=== PATIENT | male | born 1950 | race Caucasian/White ===

== ENCOUNTER 2025-07-08 08:06 | Observation (INO) ==
[2025-07-08] MEDS: ASPIRIN CHEW 324 MG PO STA (08:22)
--- NOTE | 2025-07-08 08:24 | Emergency Department Note ---
Impression & Plan Atypical chest pain, Cardiomegaly, Back pain ED Provider Note NAME: DANGELO REN AGE: 74 SEX: M : 1950 ARRIVES VIA: Walk-In INFORMANT: Patient, ED PROVIDER(S): Korey Dueñas DO CHIEF COMPLAINT: chest/back pain HPI: This is a 74-year-old male with the PMHx of HLD, OA and BPH presenting to [facility] for further evaluation of chest and back pain. Patient is accompanied by his who provide additional history. Patient states this morning while getting out of the shower he developed chest and back pain. This is sharp stabbing. States it started in his back. Reports that this was intrascapular. States that now radiating into the central aspect of his chest as well as left side. This is associated with mild nausea. Patient states that he has a family history of cardiovascular disease but does not appear to be premature. Patient notes that he has diet-controlled hyperlipidemia. Patient states that he is active and otherwise healthy. Patient frequently exercises and hunts. States when he is exerting himself, that he never has any issues with chest pain or shortness of breath. They deny fever or chills. No cough or congestion. Denies chest palpitations. No shortness of breath. They deny abdominal pain and vomiting. No urinary complaints. No recent changes in bowel movements. No recent travel or surgery. Patient denies recent changes in medications or OTC supplements. Patient offers no other complaints, today. ADDITIONAL HISTORY OBTAINED: Per HPI Chronic Medical/Social Conditions Affecting Care: Per HPI PAST MEDICAL HISTORY: See Below PAST SURGICAL HISTORY: See Below FAMILY HISTORY: See Below SOCIAL HISTORY: See Below HOME MEDICATIONS: See Below ALLERGIES: See Below VITALS: See Below PHYSICAL EXAMINATION: GENERAL: Sitting up in bed, alert, well appearing, well nourished, no distress, non-toxic EYE EXAM: normal conjunctiva. OROPHARYNX: no exudate, no erythema, lips, buccal mucosa, and tongue normal and mucous membranes are moist NECK: supple, no nuchal rigidity, no adenopathy, non-tender LUNGS: Clear to auscultation. Normal chest wall mechanics HEART: no murmurs, bradycardic rate, regular rhythm, 2+ radial pulses ABDOMEN: abdomen soft, non-tender, no masses, no rebound or guarding. BACK: Back is symmetrical on inspection and there is no deformity, no midline tenderness, no CVA tenderness. SKIN: no rashes and no bruising UPPER EXTREMITIES: upper extremities are grossly normal. LOWER EXTREMITIES: No pitting edema. NEURO EXAM: Normal sensorium, GCS 15, normal speech, no gross weakness of arms, no gross weakness of legs. Mayank Fontana is a 89-year-old male. He had originally starte MEDICAL DECISION MAKING: Differential diagnoses includes but not limited to ACS, stable vs unstable angina, dysrhythmia, viral URI, pneumonia, pericarditis, pneumothorax, costochondritis, MSK strain, PE, hypertensive emergency, psychological causes, esophageal reflux, gastritis In summary, this is a 74 year old male who presented with chest / back pain. Differential as above. Nursing notes and pertinent past medical records reviewed. Vital signs reviewed and the patient is hypertensive but otherwise afebrile and HDS. History and presentation revealed chest and back pain in otherwise healthy and active individual. Risk factors for ACS include age and HLD. Story is concerning for aortic dissection. Physical examination revealed as above. As a result of my initial evaluation, Presentation is concerning for a right dissection will proceed with CT. IV access was established and the patient was placed on CCRM. Therapeutics ordered include ASA load, IV Fentanyl and Tylenol. Diagnostics interpreted by me include EKG and cardiac monitoring as listed below: -Cardiac Monitoring: An order was placed for continuous cardiac monitoring. The monitor shows a rate of 40-60s with regular rhythm. -ECG: Sinus bradycardia at a rate of [address] segment changes to suggest STEMI. Intervals are otherwise within normal limits. -Repeat ECG: Sinus bradycardia at a rate of [address] segment changes to suggest STEMI. Intervals are otherwise within normal limits. Patient completed laboratory studies and imaging. CXR independently interpreted by me reveals no evidence of focal consolidation to suggest pna. No large pneumothorax or pleural effusion. No obvious displaced rib fracture. Results independently interpreted by me are no leukocytosis or anemia. The patient was managed with IV Tylenol and fentanyl upon arrival very like this provided.. Patient was given sublingual nitroglycerin with some relief. Patient had a normal-appearing CTA of the chest. No evidence of pulmonary embolism or aortic dissection. There is evidence of cardiomegaly. Patient is relatively atypical symptoms. He does have risk factors for ACS. Family is very anxious regarding the patient's chest pain today. His back and chest pain has failed to improve. IV Midazolam ordered for muscle relaxant. The patient will need further workup for chest pain r/o as an inpatient. Ultimately, the decision was made to admit the patient for atypical chest pain. I discussed the case with the hospitalist service via telephone/TigerText and they are agreeable to admit the patient to their services. Based on the above, including the patient's age, coexisting illnesses, labs, imaging, and exam findings the decision to treat as an inpatient. I discussed the patient with the hospitalist team who recommended admission to their services. They received the medications, treatments, interventions indicated above and their condition remained stable. I discussed my findings with the patient and their family and they understand and agree with the treatment plan. All patient / family questions were answered to their satisfaction. Consults/Care Managements Discussions: Per [facility] ER treatment provided: See above Procedures: None Critical Care: None The chart was completed utilizing [employer] Speech voice recognition software. Grammatical errors, random word insertions, pronoun errors, and incomplete sentences are an occasional consequence of this system due to software limitations, ambient noise, and hardware issues. Any formal questions or concerns about the content, text, or information contained within the body of this dictation should be directly addressed to the physician for clarification. 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) History of arthroscopy of right shoulder S/P rotator cuff repair History of colonoscopy History of lumbar surgery S/P arthroscopy of shoulder H/O cystoscopy Hx of LASIK Nausea and vomiting after administration of anesthetic agent History of surgery Hx of transurethral resection of prostate History of tooth extraction History of tonsillectomy Family History Mother Alzheimer disease Myocardial infarction History of colonic polyps Colonic polyp Grandmother (Maternal) Diabetes Aunt Diabetes Father Bladder cancer Sister History of colonic polyps Uncle Colorectal cancer Uncle Myocardial infarction Other No family history of adverse response to anesthesia Denies family history of Ovarian cancer Prostate cancer Breast cancer Social History Smoking Status: Unknown if ever smoked Second Hand Exposure: No; Do You Dip or Chew Tobacco: No; Hx Alcohol Use: No Hx Substance Use: No Preferred Language: Sierra Leonean Communication Ability: Effective Visual Impairment: Partially Limited Hearing Ability: Normal Sales Director Required: No Beliefs That Will Affect Care: None marital status: Current Living Situation: Spouse current occupational status: employed 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 How many Children do You have: 3 Feels Safe at Home: Yes Childhood Exposure to Second-Hand Smoke: Yes (father did ) Diet: regular Diet Comment: regular caffeine: Yes during the past year weight has: remained stable Dental Care, Regularly: Yes Physical Activity Frequency: Daily Seatbelt Use: always Sunscreen Use: Yes Assistive Devices: Glasses Allergies Allergies Allergy/AdvReac Type Severity Reaction Status Date / Time No Known Allergies Allergy Verified 11/25/24 08:15 Home Meds Home Medications Medication Instructions Recorded Confirmed multivitamin 1 tab PO QAM 06/19/18 07/08/25 omega 7-obn-kll-fish oil 1,000 mg 1 cap PO BID 06/19/18 07/08/25 (120 mg-180 mg) capsule (Fish Oil) fiber 1 tab PO QPM 04/12/21 07/08/25 garlic 1,000 mg PO QPM 04/12/21 07/08/25 magnesium 1 tab PO QPM 04/12/21 07/08/25 Nexgen Testosterone Booster 1 dose PO QAM 07/12/23 07/08/25 apple cider vinegar 300 mg tablet 450 mg PO QPM 07/12/23 07/08/25 melatonin 10 mg tablet 20 mg PO HS 07/12/23 07/08/25 brimonidine 0.2 % eye drops 1 drp ophthalmic (eye) BID 01/30/24 12/23/25 latanoprost 0.005 % eye drops 1 drp ophthalmic (eye) HS 08/15/23 07/08/25 coenzyme Q10 100 mg capsule 200 mg PO QAM 10/04/23 07/08/25 (CoQ-10) tadalafil 10 mg tablet (Cialis) 10 mg PO UD PRN sexual activity 10/04/23 07/08/25 Conjugated Linoleic Acid 1 tab PO QPM 03/25/24 07/08/25 aspirin 81 mg tablet,delayed 81 mg PO HS 03/25/24 07/08/25 release ferrous sulfate 325 mg (65 mg 65 mg PO QPM 03/25/24 07/08/25 iron) tablet (Iron (ferrous sulfate)) krill 1,000 mg-omega-3 170 mg-dha 1 cap PO QAM 03/25/24 07/08/25 50 mg-epa 80 [id number] capsule (krill oil) niacin 400 mg capsule,extended 400 mg PO QAM 03/25/24 07/08/25 release turmeric root extract 500 mg tablet 500 mg PO QAM 03/25/24 07/08/25 vitamin C 500 mg-quercetin 250 1 cap PO QPM 03/25/24 07/08/25 mg-bioflavonoids, citrus 33 mg capsule (Quercetin Complex) Previous Rx's Medication Instructions Recorded amoxicillin 500 mg capsule 2,000 mg (4 x 500 mg) PO ONCE #4 02/11/25 caps gabapentin 300 mg capsule 300 mg PO BID #180 caps 02/24/25 sildenafil 50 mg tablet 50 mg PO DAILY PRN sexual activity 05/28/25 #60 tabs Results & Data (ED) Vital Signs Vital Signs - 24 hr 07/08/25 08:07 07/08/25 08:07 07/08/25 08:30 Temperature 36.6 C Temperature Source Temporal Artery Scan Pulse Rate 55 L 55 L 55 L Pulse Rate [Left Finger] Pulse Rhythm Regular Respiratory Rate 20 14 Respiratory Effort / Characteristics Non-Labored Respiratory Depth Normal Respiratory Pattern Blood Pressure 182/44 H Blood Pressure [Right Arm] Blood Pressure Mean 90 Blood Pressure Mean [Right Arm] Blood Pressure Position [Right Arm] Pulse Oximetry 98 95 Oxygen Delivery Method Room Air Room Air Sepsis Recent Fever Within 48 Hours No Sepsis New/Unexplained Change in Mental Status No Sepsis Action Taken by Nursing No Action Required 07/08/25 08:54 07/08/25 09:30 07/08/25 12:07 Temperature 36.6 C Temperature Source Oral Pulse Rate Pulse Rate [Left Finger] 47 L 50 L Pulse Rhythm Respiratory Rate 15 18 18 Respiratory Effort / Characteristics Non-Labored Spontaneous Non-Labored Spontaneous Non-Labored Spontaneous Respiratory Depth Normal Normal Normal Respiratory Pattern Regular Blood Pressure Blood Pressure [Right Arm] 168/81 H 145/80 H 166/80 H Blood Pressure Mean Blood Pressure Mean [Right Arm] 110 101 108 Blood Pressure Position [Right Arm] Lying Pulse Oximetry 95 99 95 Oxygen Delivery Method Room Air Room Air Sepsis Recent Fever Within 48 Hours Sepsis New/Unexplained Change in Mental Status Sepsis Action Taken by Nursing 07/08/25 12:29 Temperature Temperature Source Pulse Rate 51 L Pulse Rate [Left Finger] Pulse Rhythm Respiratory Rate Respiratory Effort / Characteristics Respiratory Depth Respiratory Pattern Blood Pressure Blood Pressure [Right Arm] Blood Pressure Mean Blood Pressure Mean [Right Arm] Blood Pressure Position [Right Arm] Pulse Oximetry Oxygen Delivery Method Sepsis Recent Fever Within 48 Hours Sepsis New/Unexplained Change in Mental Status Sepsis Action Taken by Nursing Laboratory Data 07/08/25 08:19 07/08/25 08:19 Lab Results 07/08/25 07/08/25 07/08/25 Range/Units 08:19 08:28 10:36 WBC 7.97 (4.8-10.8) K/ul RBC 4.72 (4.70-6.10) M/uL Hgb 14.6 (14.0-18.0) g/dL POC Hgb 12.6 L (14.0-18.0) g/dl Hct 40.9 L (42.0-52.0) % POC Hct 37 L (42-52) % MCV 86.7 (80.0-100.0) fL MCH 30.9 (25.0-34.0) pg MCHC 35.7 (32.0-36.0) g/dL RDW Std Deviation 40.5 (36.4-46.3) fL RDW Coeff of Damon 12.8 (11.5-14.5) % Plt Count 260 (130-400) K/uL MPV 9.6 (9.4-12.4) fL Immature Gran % (Auto) 0.3 % Neut % (Auto) 73.3 % Lymph % (Auto) 17.9 % Forrest % (Auto) 6.9 % Eos % (Auto) 1.3 % Baso % (Auto) 0.3 % Neut # (Auto) 5.85 (1.40-6.50) K/uL Lymph # (Auto) 1.43 (1.20-3.40) K/uL Forrest # (Auto) 0.55 (0.11-0.59) K/uL Eos # (Auto) 0.10 (0.00-0.50) K/uL Baso # (Auto) 0.02 (0.00-0.20) K/uL Immature Gran # (Auto) 0.02 (0.01-0.20) K/uL PT 10.8 (9.0-12.0) Seconds INR 1.0 (0.9-1.1) APTT 25 (21-31) Seconds PTT Ratio 0.9 POC Sodium 140 (135-144) mmol/L Sodium 138 (136-145) mmol/L POC Potassium 4.5 (3.3-5.0) mmol/L Potassium 4.1 (3.5-5.1) mmol/L POC Chloride 103 (101-112) mmol/L Chloride 103 (98-107) mmol/L Carbon Dioxide 28 (21-32) mmol/L POC Total CO2 23 L (24-31) mmol/L Anion Gap 7 (3-11) POC Anion Gap 20.0 (16-25) mmol/L POC BUN 20 H (7-18) mg/dl BUN 19 (6-23) mg/dl Creatinine 0.89 (0.6-1.4) mg/dl POC Creatinine 0.9 (0.6-1.3) mg/dl Est Cr Clr Drug Dosing 71.4 ml/min eGFR 91.05 BUN/Creatinine Ratio 21.3 H (10-20) Glucose 175 H (70-99(Fasting)) mg/dl POC Glucose (other) 176 H (70-99) mg/dl Calcium 9.6 (8.6-10.3) mg/dl POC Ioniz Calcium Wilmer 1.18 (1.12-1.32) mmol/l Total Bilirubin 0.5 (0.2-1.0) mg/dl AST 20 (13-39) U/L ALT 22 (7-52) U/L Alkaline Phosphatase 65 (34-104) U/L Troponin I High Sens 5.2 4.8 (0-20) pg/ml Total Protein 8.6 H (6.0-8.3) gm/dl Albumin 4.9 (3.4-5.0) gm/dl Globulin 3.7 (2.5-4.0) gm/dl Albumin/Globulin Ratio 1.3 (0.9-2) Lipase 21 (11-82) U/L Administered Medications Nitroglycerin (Nitroglycerin Sl 0.4 Mg/Tab Tab) 0.4 mg SL Q5M PRN PRN Reason: Chest Pain Stop: 08/07/25 09:40 Last Admin: 07/08/25 10:32 Dose: 0.4 mg Documented By: rolf Admin: 07/08/25 09:57 Dose: 0.4 mg Documented By: MR Discontinued Medications Aspirin (Aspirin Chew 324 Mg) 324 mg PO NOW STA Stop: 07/08/25 08:16 Last Admin: 07/08/25 08:22 Dose: 324 mg Documented By: rolf Diazepam (Diazepam Inj 5 Mg/Ml 2 Ml Carp) 5 mg IV NOW STA Stop: 07/08/25 11:15 Last Admin: 07/08/25 12:12 Dose: 5 mg Documented By: SKYE Fentanyl Citrate (Fentanyl Citrate Pf 100 Mcg/2 Ml Vial) 50 mcg IV NOW ONE Stop: 07/08/25 08:16 Last Admin: 07/08/25 08:23 Dose: 50 mcg Documented By: rolf Acetaminophen (Ofirmev) 1,000 mg in 100 mls @ 400 mls/hr IV NOW STA Stop: 07/08/25 08:29 Last Infusion: 07/08/25 09:54 Dose: Infused Documented By: rolf Admin: 07/08/25 08:44 Dose: 400 mls/hr Documented By: rolf Ioversol (Optiray 320 125ml) 120 ml IV ONCE ONE Stop: 07/08/25 08:36 Last Admin: 07/08/25 08:35 Dose: 120 ml Documented By: ASAEL Imaging Data Radiologist's Impression: Chest CTA 07/08/25 08:15 CT ANGIOGRAM OF THE CHEST COMBO CLINICAL HISTORY: Chest pain. Thoracic back pain. COMPARISON STUDY: Chest x-ray dated 07/08/2025. TECHNIQUE: Before and following the IV administration of 120 cc of Optiray 320, CT angiogram of the chest was performed from the thoracic inlet to the upper abdomen utilizing the dissection protocol. Images are reviewed in the axial, sagittal, and coronal planes. 3-D MIPS images are created and assessed. IV contrast was administered without complication. A dose lowering technique was utilized adhering to the principles of ALARA. CT DOSE: 859.44 mGy.cm FINDINGS: Thyroid: Imaged portions of the thyroid gland are normal in size and attenuation. Thoracic aorta: No intramural hematoma is seen on the unenhanced series. There is mild atherosclerotic calcification of the thoracic aorta, which is normal in caliber and demonstrates standard 3-vessel arch anatomy. No dissection is seen. The arch vessels are widely patent. Pulmonary vasculature: The pulmonary trunk is normal in caliber. There are no filling defects identified in the main, lobar, or segmental pulmonary arteries to suggest pulmonary embolus. Heart: The heart is mildly enlarged and without pericardial effusion. There is mild coronary artery atherosclerosis. Lungs and pleural spaces: There is an airspace consolidation or pleural effusion. The trachea and central airways are clear. Dependent atelectasis is seen at both lung bases. A 4 mm low suspicion focus of pleural-based nodularity is seen in the right middle lobe along minor fissure on image #121. Mediastinum: There is no mediastinal lymphadenopathy. Gisselle: There are calcified left hilar nodes. No lymphadenopathy is seen. Axillae: There is no axillary lymphadenopathy. Upper abdomen: There are calcified splenic and hepatic granulomas. A tiny hiatal hernia is observed. Skeletal structures: No lytic or blastic bony lesions are seen. Moderate arthritic change is seen in the shoulders with evidence of prior surgery on the right. IMPRESSION: 1. Unremarkable CT angiogram of the thoracic aorta. 2. There is no evidence of pulmonary embolus in the main, lobar, or segmental pulmonary arteries. 3. There is no airspace consolidation or pleural effusion. 4. Cardiomegaly. 5. Additional findings as above. ACT 112: Negative or not required by law. Electronically signed by: Da Forbes M.D. 07/08/2025 8:56 AM Chest X-Ray 07/08/25 08:15 SINGLE VIEW CHEST CLINICAL HISTORY: Chest pain FINDINGS: An AP, portable, upright chest radiograph is compared to study dated 11/28/2024. The heart is mildly enlarged. The pulmonary vasculature is noncongested. There is mild bibasilar atelectasis. The lungs and pleural spaces are otherwise clear. No pneumothorax is seen. The skeletal structures are osteopenic. The bony thorax is grossly intact. IMPRESSION: Mild cardiomegaly with no acute cardiopulmonary abnormality identified. ACT 112: Negative or not required by law. Electronically signed by: Da Forbes M.D. 07/08/2025 8:36 AM Discharge Plan Visit Data Chief Complaint: Chest Pain Stated Complaint: BACK PAIN, CHEST PAIN ED Provider: Korye Dueñas Discharge Problem: Atypical chest pain, Cardiomegaly, Back pain Patient Disposition: Admitted As Inpatient Condition: Fair Forms Stand Alone Forms: [facility] Prescriptions Prescriptions: No Action amoxicillin 500 mg capsule 2,000 mg PO ONCE Qty: 4 2RF Rx Instructions: Take 4 Capsules (2000 mg) by mouth ONE hour prior to dental procedure. gabapentin 300 mg capsule 300 mg PO BID Qty: 180 1RF Rx Instructions: 300 mg orally twice a day; sildenafil 50 mg tablet 50 mg PO DAILY PRN (Reason: sexual activity) Qty: 60 1RF Rx Instructions: administer 30 minutes to 4 hours before activity multivitamin Tablet 1 tab PO QAM Patient Comments: men over 50+ omega 2-ith-plm-fish oil [Fish Oil] 1,000 mg (120 mg-180 mg) Capsule 1 cap PO BID fiber Tablet 1 tab PO QPM magnesium Tablet 1 tab PO QPM garlic Capsule 1,000 mg PO QPM apple cider vinegar 300 mg Tablet 450 mg PO QPM melatonin 10 mg Tablet 20 mg PO HS Nexgen Testosterone Booster 1 dose PO QAM latanoprost 0.005 % drops 1 drp ophthalmic (eye) HS Rx Instructions: 1 drop both eyes brimonidine 0.2 % drops 1 drp ophthalmic (eye) BID Rx Instructions: 1 drop both eyes coenzyme Q10 [CoQ-10] 100 mg Capsule 200 mg PO QAM tadalafil [Cialis] 10 mg tablet 10 mg PO UD PRN (Reason: sexual activity) Rx Instructions: administer approximately 30min before sexual activity; do not use more than 1 dose per 24hrs niacin 400 mg Capsule, Extended Release 400 mg PO QAM ferrous sulfate [Iron (ferrous sulfate)] 325 mg (65 mg iron) Tablet 65 mg PO QPM krill oil 1,[id number] mg Capsule 1 cap PO QAM turmeric root extract 500 mg Tablet 500 mg PO QAM Quercetin Complex 500-250-33 mg Capsule 1 cap PO QPM Conjugated Linoleic Acid 1 tab PO QPM aspirin 81 mg tablet,delayed release (DR/EC) 81 mg PO HS Referrals Referrals: Diana Mejia DO [Primary Care Provider] -
[2025-07-08 08:31] LABS: Hematocrit (blood only) 40.9 % (42.0-52.0); Hemoglobin 14.6 g/dL (14.0-18.0); Immature Granulocytes # (auto) 0.02 K/uL (0.01-0.20); Immature Granulocytes % (auto) 0.3 %; Mean Corpuscular Hemoglobin 30.9 pg (25.0-34.0); Mean Corpuscular Volume 86.7 fL (80.0-100.0); Platelet Count 260 K/uL (130-400); RDW Standard Deviation 40.5 fL (36.4-46.3); Red Blood Count 4.72 M/uL (4.70-6.10); White Blood Count 7.97 K/ul (4.8-10.8)
[2025-07-08] MEDS: OPTIRAY 320 125ml IV ONE (08:35)
--- NOTE | 2025-07-08 08:38 | XRay Report ---
SINGLE VIEW CHEST CLINICAL HISTORY: Chest pain FINDINGS: An AP, portable, upright chest radiograph is compared to study dated 11/28/2024. The heart i s mildly enlarged. The pulmonary vasculature is noncongested. There is mild bibasilar atelectasis. Th e lungs and pleural spaces are otherwise clear. No pneumothorax is seen. The skeletal structures are osteopenic. The bony thorax is grossly intact. IMPRESSION: Mild cardiomegaly with no acute cardiopulmonary abnormality identified. ACT 112: Negative or not required by law. Electronically signed by: Da Forbes M.D. 07/08/2025 8:36 AM
[2025-07-08] MEDS: ACETAMINOPHEN 1,000 MG/100 ML VIAL IV STA (08:44)
[2025-07-08 08:48] LABS: Alanine Aminotransferase 22.0 U/L (7-52); Albumin Globulin Ratio 1.3 (0.9-2); Albumin Level 4.9 gm/dl (3.4-5.0); Alkaline Phosphatase 65.0 U/L (34-104); Anion Gap 7.0 (3-11); Bilirubin,Total 0.5 mg/dl (0.2-1.0); Blood Urea Nitrogen 19.0 mg/dl (6-23); Calcium 9.6 mg/dl (8.6-10.3); Carbon Dioxide 28.0 mmol/L (21-32); Chloride 103.0 mmol/L (98-107); Creatinine Clr Calc Pharmacy 71.4 ml/min; Globulin 3.7 gm/dl (2.5-4.0); Glucose 175.0 mg/dl (70-99(Fasting)); Lipase 21.0 U/L (11-82); Potassium 4.1 mmol/L (3.5-5.1); Sodium 138.0 mmol/L (136-145); Total Protein 8.6 gm/dl (6.0-8.3)
--- NOTE | 2025-07-08 08:58 | CT Scan Report ---
CT ANGIOGRAM OF THE CHEST COMBO CLINICAL HISTORY: Chest pain. Thoracic back pain. COMPARISON STUDY: Chest x-ray dated 07/08/2025. TECHNIQUE: Before and following the IV administration of 120 cc of Optiray 320, CT angiogram of the c hest was performed from the thoracic inlet to the upper abdomen utilizing the dissection protocol. Im ages are reviewed in the axial, sagittal, and coronal planes. 3-D MIPS images are created and assesse d. IV contrast was administered without complication. A dose lowering technique was utilized adherin g to the principles of ALARA. CT DOSE: 859.44 mGy.cm FINDINGS: Thyroid: Imaged portions of the thyroid gland are normal in size and attenuation. Thoracic aorta: No intramural hematoma is seen on the unenhanced series. There is mild atheroscleroti c calcification of the thoracic aorta, which is normal in caliber and demonstrates standard 3-vessel arch anatomy. No dissection is seen. The arch vessels are widely patent. Pulmonary vasculature: The pulmonary trunk is normal in caliber. There are no filling defects identif ied in the main, lobar, or segmental pulmonary arteries to suggest pulmonary embolus. Heart: The heart is mildly enlarged and without pericardial effusion. There is mild coronary artery a therosclerosis. Lungs and pleural spaces: There is an airspace consolidation or pleural effusion. The trachea and darinel tral airways are clear. Dependent atelectasis is seen at both lung bases. A 4 mm low suspicion focus of pleural-based nodularity is seen in the right middle lobe along minor fissure on image #121. Mediastinum: There is no mediastinal lymphadenopathy. Gisselle: There are calcified left hilar nodes. No lymphadenopathy is seen. Axillae: There is no axillary lymphadenopathy. Upper abdomen: There are calcified splenic and hepatic granulomas. A tiny hiatal hernia is observed. Skeletal structures: No lytic or blastic bony lesions are seen. Moderate arthritic change is seen in the shoulders with evidence of prior surgery on the right. IMPRESSION: 1. Unremarkable CT angiogram of the thoracic aorta. 2. There is no evidence of pulmonary embolus in the main, lobar, or segmental pulmonary arteries. 3. There is no airspace consolidation or pleural effusion. 4. Cardiomegaly. 5. Additional findings as above. ACT 112: Negative or not required by law. Electronically signed by: Da Forbes M.D. 07/08/2025 8:56 AM
[2025-07-08 09:04] LABS: INR 1.0 (0.9-1.1); Partial Thromboplastin Time 25 Seconds (21-31); Prothrombin Time 10.8 Seconds (9.0-12.0)
[2025-07-08] MEDS: NITROGLYCERIN SL 0.4 MG/TAB TAB SL PRN (09:57)
[2025-07-08] MEDS ORDERED: KETOROLAC TROMETHAMINE 15 MG/ML VIAL IV PRN (14:38)
[2025-07-08] MEDS ORDERED: ACETAMINOPHEN 325 MG TAB PO PRN (14:38)
[2025-07-08] MEDS ORDERED: POLYETHYLENE (MIRALAX) 17 GM PACK PO PRN (14:38)
--- NOTE | 2025-07-08 14:45 | History & Physical Report ---
"Date of Service July 08, 2025 Assessment & Plan (1) Atypical chest pain: (2) Back pain: Plan This is a 74 year old gentleman with past medical history of BPH, HLD, OA who presented to the ED on 07/08 for chest pain. While in the ED, his EKG was without ischemic changes. His troponin was negative x 2. CXR and CTA were both negative. CBC & BMP were both stable. LFTs were WNL & Lipase also WNL. 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 EKG without ischemic changes, troponin negative x2. s/p Fentanyl, ASA, nitro x2 & Valium in ED. Patient reports improvement after Valium. Suspect possibly MSK given improvement after Valium ? Obtain Echo, monitor on tele, repeat EKG prn for recurrence of chest pain & repeat in AM If workup above comes back negative, patient may be discharged in the AM on 07/09. Check Lipids and A1c in AM #Neuropathy - Gabapentin DVT prophylaxis: SCD's Code: full Updated at bedside & case was discussed with Dr. Holland at time of admission. History of Present Illness Primary Care Provider: Diana Mejia, This is a 74 year old gentleman with past medical history of BPH, HLD, OA who presented to the ED on 07/08 for chest pain. Jorge was seen & examined this afternoon with his at bedside. He reports this morning he had an onset of back pain after getting out of the shower that radiated to his chest. He reports nothing helped it at home which is why he reported to the ED. He now reports after Valium that he feels his pain has resolved. When the pain was severe, he felt nauseous but did not vomit. States he has had back surgery in the past but it does not feel similar to previous back pain he has had. Denies any additional complaints including no SOB, LE edema, urinary/bowel changes, abdominal pain. While in the ED, his EKG was without ischemic changes. His troponin was negative x 2. CXR and CTA were both negative. CBC & BMP were both stable. LFTs were WNL & Lipase also WNL. Code discussion did take place and he does confirm that he is a full code. Allergies Allergy/AdvReac Type Severity Reaction Status Date / Time No Known Allergies Allergy Verified 11/25/24 08:15 Home Medications Medication Instructions Recorded Confirmed Type multivitamin 1 tab PO QAM 06/19/18 07/08/25 History omega 5-xcf-ejg-fish oil 1,000 mg 1 cap PO BID 06/19/18 07/08/25 History (120 mg-180 mg) capsule (Fish Oil) fiber 1 tab PO QPM 04/12/21 07/08/25 History garlic 1,000 mg PO QPM 04/12/21 07/08/25 History magnesium 1 tab PO QPM 04/12/21 07/08/25 History Nexgen Testosterone Booster 1 dose PO QAM 07/12/23 07/08/25 History apple cider vinegar 300 mg tablet 450 mg PO QPM 07/12/23 07/08/25 History melatonin 10 mg tablet 20 mg PO HS 07/12/23 07/08/25 History brimonidine 0.2 % eye drops 1 drp ophthalmic (eye) BID 08/15/23 07/08/25 History latanoprost 0.005 % eye drops 1 drp ophthalmic (eye) HS 08/15/23 07/08/25 History coenzyme Q10 100 mg capsule 200 mg PO QAM 10/04/23 07/08/25 History (CoQ-10) tadalafil 10 mg tablet (Cialis) 10 mg PO UD PRN sexual activity 10/04/23 07/08/25 History Conjugated Linoleic Acid 1 tab PO QPM 03/25/24 07/08/25 History aspirin 81 mg tablet,delayed 81 mg PO HS 03/25/24 07/08/25 History release ferrous sulfate 325 mg (65 mg 65 mg PO QPM 03/25/24 07/08/25 History iron) tablet (Iron (ferrous sulfate)) krill 1,000 mg-omega-3 170 mg-dha 1 cap PO QAM 03/25/24 07/08/25 History 50 mg-epa 80 tk-pksqwv-tggba capsule (krill oil) niacin 400 mg capsule,extended 400 mg PO QAM 03/25/24 07/08/25 History release turmeric root extract 500 mg tablet 500 mg PO QAM 03/25/24 07/08/25 History vitamin C 500 mg-quercetin 250 1 cap PO QPM 03/25/24 07/08/25 History mg-bioflavonoids, citrus 33 mg capsule (Quercetin Complex) amoxicillin 500 mg capsule 2,000 mg (4 x 500 mg) PO ONCE #4 02/11/25 07/08/25 Rx caps gabapentin 300 mg capsule 300 mg PO BID #180 caps 02/24/25 07/08/25 Rx sildenafil 50 mg tablet 50 mg PO DAILY PRN sexual activity 05/28/25 07/08/25 Rx #60 tabs 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) History of arthroscopy of right shoulder S/P rotator cuff repair History of colonoscopy History of lumbar surgery S/P arthroscopy of shoulder H/O cystoscopy Hx of LASIK Nausea and vomiting after administration of anesthetic agent History of surgery Hx of transurethral resection of prostate History of tooth extraction History of tonsillectomy Family History Mother Alzheimer disease Myocardial infarction History of colonic polyps Colonic polyp Grandmother (Maternal) Diabetes Aunt Diabetes Father Bladder cancer Sister History of colonic polyps Uncle Colorectal cancer Uncle Myocardial infarction Other No family history of adverse response to anesthesia Denies family history of Ovarian cancer Prostate cancer Breast cancer Social History Smoking Status: Unknown if ever smoked Second Hand Exposure: No; Do You Dip or Chew Tobacco: No; Hx Alcohol Use: No Hx Substance Use: No Preferred Language: Citizen Of [place] Communication Ability: Effective Visual Impairment: Partially Limited Hearing Ability: Normal Bracelet Former Required: No Beliefs That Will Affect Care: None marital status: Current Living Situation: Spouse current occupational status: employed 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 [employer] How many Children do You have: 3 Feels Safe at Home: Yes Childhood Exposure to Second-Hand Smoke: Yes (father did ) Diet: regular Diet Comment: regular caffeine: Yes during the past year weight has: remained stable Dental Care, Regularly: Yes Physical Activity Frequency: Daily Seatbelt Use: always Sunscreen Use: Yes Assistive Devices: Glasses Physical Exam Physical Exam: General: NAD, VS: BP 166/80; P73; R14; T36.6C Resp: normal respiratory effort, lungs clear to auscultation CV: RRR, no murmur, no tenderness to chest wall Abd: normal bowel sounds, non tender, no hepatosplenomegaly Extremities: Moves all extremities, no edema, no tenderness over spine or MSK area of thoracic spine area. Neuro: A&O x3, Skin: intact, no lesions noted Results & Data Results & Data Vital Signs (Past 12 Hours) Vital Signs Temp Pulse Pulse Resp BP BP Pulse Ox 07/08/25 12:29 51 L 07/08/25 12:07 36.6 C 50 L 18 166/80 H 95 07/08/25 09:30 47 L 18 145/80 H 99 07/08/25 08:54 15 168/81 H 95 07/08/25 08:30 55 L 07/08/25 08:07 55 L 14 95 07/08/25 08:07 36.6 C 55 L 20 182/44 H 98 O2 Del Method 07/08/25 12:29 07/08/25 12:07 Room Air 07/08/25 09:30 Room Air 07/08/25 08:54 07/08/25 08:30 07/08/25 08:07 Room Air 07/08/25 08:07 Room Air PG Care Time/CCT Total # of Minutes Spent Total Time Spent with Patient: Total time spent is greater than 50% in coordination of care (as documented) at patient's floor/unit and/or counseling patient: Coding Level of Care Code 52836 INT INP/OBS CARE 3/75MIN Diagnoses Atypical chest pain R07.89 Back pain M54.9"
[2025-07-08] MEDS: ONDANSETRON INJ 2 MG/ML 2 ML VIAL IV PRN (16:40)
--- NOTE | 2025-07-08 18:34 | XCELERA ---
[id number]
--- NOTE | 2025-07-08 18:48 | Electrocardiogram Report ---
Test Reason : Blood Pressure : */* mmHG Vent. Rate : 54 BPM Atrial Rate : 54 BPM P-R Int : 174 ms QRS Dur : 86 ms QT Int : 400 ms P-R-T Axes : 59 33 55 degrees QTcB Int : 379 ms Sinus bradycardia Otherwise normal ECG When compared with ECG of 20-Apr-2021 08:23, No significant change was found Confirmed by Paco Espinosa ([id number]) on 07/08/2025 6:48:31 PM Referred By: REFERRED SELF Confirmed By: Paco Espinosa
--- NOTE | 2025-07-08 18:49 | Electrocardiogram Report ---
Test Reason : Blood Pressure : */* mmHG Vent. Rate : 49 BPM Atrial Rate : 49 BPM P-R Int : 178 ms QRS Dur : 84 ms QT Int : 434 ms P-R-T Axes : 59 26 67 degrees QTcB Int : 392 ms Sinus bradycardia Otherwise normal ECG When compared with ECG of 08-Jul-2025 08:13, (unconfirmed) No significant change was found Confirmed by Paco Espinosa ([id number]) on 07/08/2025 6:49:42 PM Referred By: REFERRED SELF Confirmed By: Paco Espinosa
[2025-07-08] MEDS: GABAPENTIN 300 MG CAP PO SCH (22:18)
[2025-07-08] MEDS: ASPIRIN 81 MG ECTAB PO SCH (22:18)
[2025-07-08] MEDS: LATANOPROST 0.005% OP SOLN 2.5 ML BTL OP SCH (22:18)
[2025-07-08] MEDS: MELATONIN 3 MG TAB PO SCH (22:18)
[2025-07-08] MEDS: BRIMONIDINE TARTRATE 0.2% 5ML OP SCH (22:19)
[2025-07-09 04:02] VITALS: RESP 18
[2025-07-09 07:20] LABS: Hematocrit (blood only) 36.3 % (42.0-52.0); Hemoglobin 12.6 g/dL (14.0-18.0); Mean Corpuscular Hemoglobin 30.2 pg (25.0-34.0); Mean Corpuscular Volume 87.1 fL (80.0-100.0); Platelet Count 242 K/uL (130-400); RDW Standard Deviation 40.4 fL (36.4-46.3); Red Blood Count 4.17 M/uL (4.70-6.10); White Blood Count 11.42 K/ul (4.8-10.8)
--- NOTE | 2025-07-09 07:44 | Discharge Summary ---
Discharge Summary Date of Service July 09, 2025 Principal Dx & Hospital Course #1 = Principal Diagnosis (1) Atypical chest pain: (2) Back pain: Plan This is a 74 year old gentleman with past medical history of BPH, HLD, OA who presented to the ED on 07/08 for chest pain. While in the ED, his EKG was without ischemic changes. His troponin was negative x 2. CXR and CTA were both negative. CBC & BMP were both stable. LFTs were WNL & Lipase also WNL. 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 Patient reports improvement after Valium. Touched base with telemetry on 07/09 -no cardiac events overnight; NSR with heart rate between 40s to 80s Echocardiogram on 07/08 revealed LVEF at 60-65%; no regional wall motion abnormalities appreciated; grade 1 diastolic dysfunction Lipids revealed mildly elevated cholesterol at 207 A1c WNL at 5.9% Heart score: 3 (based on age and 1-2 risk factors) Patient is reportedly chest/back pain free on the morning of 07/09; symptoms have fully resolved Suspect possibly MSK given improvement with Valium Patient believes this was due to a back spasm that has resolved Denies h/o chest pain with exertion/climbing steps Will plan to discharge with PRN flexeril and plan for OP f/u #Leukocytosis Mild; WBC count 11.42 on the morning of discharge Clinically, patient denies infectious symptoms (no fever, chills, night sweats, cough, or urinary symptoms) ? Stress demargination from being in the hospital Recommend repeat CBC as an outpatient to ensure resolution #Neuropathy Continue Gabapentin Day of discharge 07/09: Patient is mildly bradycardic at 48 bpm and hypertensive at 144/77; vitals otherwise stable. Mr. Walker is in good spirits this morning. While he had some difficulty sleeping last night, he reports she has 0/10 back and chest pain this morning. Patient reports she is very confident that what he had yesterday was due to a back spasm. The pain started in his back, but wrapped around his left flank towards his chest. While he described as excruciating at the time (8 out of 10), his back pain fully resolved after he was given Valium in the ED. This morning, he has had occasional "twinges" of pain in his upper back with certain movements, but is otherwise asymptomatic. He denies any chest pain or pressure over the past week. He reports that he never feels chest pain or pressure after walking up steps, and that he this acute pain is new in the past 24 hours, and is fully resolved. In regard to risk factors, he denies prior history of DE, CVA/TIA, PAD, smoking, or diabetes. In regard to family history of cardiac events, his grandfather at 81 years old of an DE. Patient denies any recent muscle strains, falls, or trauma to the chest wall. He has not noticed any rashes on his body. Overall, he feels well, and expresses a desire to return home today if possible. ROS: Patient denies back pain (resolved), headache (resolved; he attributes this to receiving nitroglycerin in the ED), chest pain (resolved), fevers overnight, chills, night sweats, rashes on his body, dizziness/lightheadedness with movements, chest pressure, chest palpitations, cough, pleuritic CP, abdominal pain, N/V/D, or changes in urinary/bowel habits. Disposition: Discharge home Notes For Next Care Provider Patient hospitalized for cardiac workup, which was negative. EKG without ischemic changes; troponin WNL x 3; echocardiogram with grade 1 diastolic dysfunction but no regional wall motion abnormalities. Patient reported his symptoms fully resolved prior to discharge. He does not have a history of chest pain or pressure with exertion. Suspect acute onset of back/chest pain was due to a muscle spasm. Discharged on Flexeril. Only labs that might require follow-up include elevated cholesterol at 207, and elevated white blood cell count of 11.4 at time of discharge. Admission HPI Per Admitting Provider This is a 74 year old gentleman with past medical history of BPH, HLD, OA who presented to the ED on 07/08 for chest pain. Jorge was seen & examined this afternoon with his at bedside. He reports this morning he had an onset of back pain after getting out of the shower that radiated to his chest. He reports nothing helped it at home which is why he reported to the ED. He now reports after Valium that he feels his pain has resolved. When the pain was severe, he felt nauseous but did not vomit. States he has had back surgery in the past but it does not feel similar to previous back pain he has had. Denies any additional complaints including no SOB, LE edema, urinary/bowel changes, abdominal pain. While in the ED, his EKG was without ischemic changes. His troponin was negative x 2. CXR and CTA were both negative. CBC & BMP were both stable. LFTs were WNL & Lipase also WNL. Code discussion did take place and he does confirm that he is a full code. Admission Exam Per Admitting Provider General: NAD, VS: BP 166/80; P73; R14; T36.6C Resp: normal respiratory effort, lungs clear to auscultation CV: RRR, no murmur, no tenderness to chest wall Abd: normal bowel sounds, non tender, no hepatosplenomegaly Extremities: Moves all extremities, no edema, no tenderness over spine or MSK area of thoracic spine area. Neuro: A&O x3, Skin: intact, no lesions noted Discharge Exam General: no acute distress; pleasant affect; sitting upright on the side of his bed eating breakfast; on speaker phone; non-toxic appearing; cooperative; SpO2 98% on RA HEENT: normocephalic, atraumatic; PERRLA; vision and hearing intact Neck: supple; trachea midline Skin: warm, dry without signs of tenting; no cyanosis; no rashes, bruising, lesions, or erythema noted CV: chest wall NTP; no rashes or bruising appreciated on the back, left flank, or chest wall; RR, mildly bradycardic at 45 to 50 bpm; S1/S2 normal; no murmurs/rubs/gallops; pulses intact and symmetric at radial, DP, and PT Lungs: no acute respiratory distress; symmetrical chest wall expansion; clear breath sounds across all lung wolf w/o adventitious sounds; no wheezing ABD: Soft, NTP; BS present; no rebound/guarding; no distention MSK: no tics or fasciculations; no edema noted in the LEs b/l, nonerythematous Neuro: A&Ox3; normal mood and affect; fluent speech; sensation intact and symmetric in the LEs b/l Discharge Plan Discharge Items Patient Disposition: Home - Self-Care Reason For Visit: CHEST PAIN Discharge Diagnosis: Chest pain Condition on Discharge: Fair Activity: Resume your previous activity Non-emergency contact: Primary Care Provider Call non-emergency contact if: you have any medication questions, your symptoms worsen, your pain is not controlled and you have a fever Follow-up/Referrals: Diana Mejia DO [Primary Care Provider] - Diet: Regular Addtl Attending Provider Instructions: You were hospitalized at [facility] from 07/08 to 07/09 for acute onset of back, left flank, and chest pain. You underwent a full cardiac assessment on arrival. However, your labs and imaging were all reassuring, and did not point to cardiac etiology as the origin of your pain. You had an ultrasound test done called an echocardiogram which revealed that your heart loja and valves appeared normal. Additionally, we checked an enzyme with the heart releases in times of stress called a "troponin", and this was normal during 3 separate occasions. While here fasting lipid panel revealed that your cholesterol level was mildly high at 207 (normal reference range 0-200), your other blood work looked reassuring. You had a mildly elevated white blood cell count of 11.4 on day of discharge, but you reported no infectious symptoms, and it is suspected this could be due to something called "stress demargination". It is recommended that you have outpatient blood work drawn prior to your transitional care appointment to ensure stability of your white blood cell count level. It is suspected that your pain was secondary to a muscle spasm in your back, that improved after being given a medication called "Valium" in the emergency department. Given your vital signs are currently stable, you report full resolution of your symptoms, and your cardiac workup was negative, we feel that you are safe to return home at this time. New prescription on discharge: Cyclobenzaprine ("Flexeril") 5 mg tablets up to 2 times daily as needed for recurrence of back spasm Please plan to follow-up with your PCP in the next 7 to 10 days for a [facility] care appointment. If you develop any new or worsening symptoms, such as fever, chills, intractable chest pain, intractable back pain, difficulty walking, chest palpitations, numbness/pain in your left jaw/left arm, or difficulty breathing, please return to the emergency department immediately. It was a pleasure taking care of you. Please reach out with any questions or concerns. Sincerely, The Hospital medicine team at [facility] Pending Studies at Discharge: No Stand-Alone Forms: [facility] Medications and DC Order Prescriptions: New cyclobenzaprine 5 mg tablet 5 mg PO BID PRN (Reason: muscle spasm) Qty: 14 0RF Rx Instructions: Take 1 tablet up to 2 times daily as needed for muscle spasms Continued amoxicillin 500 mg capsule 2,000 mg PO ONCE Qty: 4 2RF Rx Instructions: Take 4 Capsules (2000 mg) by mouth ONE hour prior to dental procedure. gabapentin 300 mg capsule 300 mg PO BID Qty: 180 1RF Rx Instructions: 300 mg orally twice a day; sildenafil 50 mg tablet 50 mg PO DAILY PRN (Reason: sexual activity) Qty: 60 1RF Rx Instructions: administer 30 minutes to 4 hours before activity multivitamin Tablet 1 tab PO QAM Patient Comments: men over 50+ omega 4-uvc-zsm-fish oil [Fish Oil] 1,000 mg (120 mg-180 mg) Capsule 1 cap PO BID fiber Tablet 1 tab PO QPM magnesium Tablet 1 tab PO QPM garlic Capsule 1,000 mg PO QPM apple cider vinegar 300 mg Tablet 450 mg PO QPM melatonin 10 mg Tablet 20 mg PO HS Nexgen Testosterone Booster 1 dose PO QAM latanoprost 0.005 % drops 1 drp ophthalmic (eye) HS Rx Instructions: 1 drop both eyes brimonidine 0.2 % drops 1 drp ophthalmic (eye) BID Rx Instructions: 1 drop both eyes coenzyme Q10 [CoQ-10] 100 mg Capsule 200 mg PO QAM tadalafil [Cialis] 10 mg tablet 10 mg PO UD PRN (Reason: sexual activity) Rx Instructions: administer approximately 30min before sexual activity; do not use more than 1 dose per 24hrs niacin 400 mg Capsule, Extended Release 400 mg PO QAM ferrous sulfate [Iron (ferrous sulfate)] 325 mg (65 mg iron) Tablet 65 mg PO QPM krill oil [id number] mg Capsule 1 cap PO QAM turmeric root extract 500 mg Tablet 500 mg PO QAM Quercetin Complex 500-250-33 mg Capsule 1 cap PO QPM Conjugated Linoleic Acid 1 tab PO QPM aspirin 81 mg tablet,delayed release (DR/EC) 81 mg PO HS Discharge Orders: Discharge Order (Routine); Ordered 07/09/25 Ordered By: Robert Saxena Admission Data Admit Date/Time: 07/08/25 14:38 Attending Provider: Otoniel Grant Admit Provider: Faisal Holland Primary Care Provider: Diana Mejia Other Providers: Jorge Hughes Hospital Stay Data Consultations 07/08/25 11:58 ED Decision to Admit Stat Diagnostic Imagining Performed 07/08/25 08:15 CT angio chest dissec wo/w con Stat Discharge Instructions Given to Patient (Per Discharging Provider) You were hospitalized at [facility] from 07/08 to 07/09 for acute onset of back, left flank, and chest pain. You underwent a full cardiac assessment on arrival. However, your labs and imaging were all reassuring, and did not point to cardiac etiology as the origin of your pain. You had an ultrasound test done called an echocardiogram which revealed that your heart loja and valves appeared normal. Additionally, we checked an enzyme with the heart releases in times of stress called a "troponin", and this was normal during 3 separate occasions. While here fasting lipid panel revealed that your cholesterol level was mildly high at 207 (normal reference range 0-200), your other blood work looked reassuring. You had a mildly elevated white blood cell count of 11.4 on day of discharge, but you reported no infectious symptoms, and it is suspected this could be due to something called "stress demargination". It is recommended that you have outpatient blood work drawn prior to your transitional care appointment to ensure stability of your white blood cell count level. It is suspected that your pain was secondary to a muscle spasm in your back, t hat improved after being given a medication called "Valium" in the emergency department. Given your vital signs are currently stable, you report full resolution of your symptoms, and your cardiac workup was negative, we feel that you are safe to return home at this time. New prescription on discharge: Cyclobenzaprine ("Flexeril") 5 mg tablets up to 2 times daily as needed for recurrence of back spasm Please plan to follow-up with your PCP in the next 7 to 10 days for a transitional care appointment. If you develop any new or worsening symptoms, such as fever, chills, intractable chest pain, intractable back pain, difficulty walking, chest palpitations, numbness/pain in your left jaw/left arm, or difficulty breathing, please return to the emergency department immediately. It was a pleasure taking care of you. Please reach out with any questions or concerns. Sincerely, The Hospital medicine team at [facility] Total Time Total Time Spent Total Time Spent (In Minutes): 25 Coding Level of Care Code 46069 IN/OBS DISCH 30 MIN/LESS Diagnoses Atypical chest pain R07.89 Back pain M54.9
[2025-07-09 07:51] LABS: Hemoglobin A1C 5.9 % (4.5-5.6)
[2025-07-09 08:18] LABS: Anion Gap 6.0 (3-11); Blood Urea Nitrogen 21.0 mg/dl (6-23); Calcium 9.1 mg/dl (8.6-10.3); Carbon Dioxide 27.0 mmol/L (21-32); Chloride 105.0 mmol/L (98-107); Cholesterol 207.0 mg/dl (0-200); Creatinine Clr Calc Pharmacy 82.7 ml/min; Glucose 127.0 mg/dl (70-99(Fasting)); HDL Cholesterol 25.0 mg/dl; Potassium 3.8 mmol/L (3.5-5.1); Sodium 138.0 mmol/L (136-145); Triglycerides 126.0 mg/dl (0-150)
[2025-07-09] MEDS: MULTIVITAMIN TAB PO SCH (08:18)
[2025-07-09 08:31] VITALS: PULSE 48; TEMP 97.9; O2SAT 98
[2025-07-09 10:14] VITALS: BP 131/80
== END 2025-07-09 10:20 | disposition home or self-care (01) ==
LOC: SUATTDRO → ED 08:06 → EDINP 08:06 → SUATTDRO 14:38 → 2N 18:11